=== PATIENT | female | born 1950 | race Caucasian/White ===

== ENCOUNTER → 2023-10-09 09:13 | Outpatient (REF) | payer OTHER, SELFPAY | LOC: DHCBS HW 09:13 | PROVIDERS: ATTENDING PHYSICIAN Internal Medicine Cardiovascular Disease; FAMILY PHYSICIAN Physician Assistant Medical | DX: R06.09 Other forms of dyspnea (principal); R94.31 Abnormal electrocardiogram [ECG] [EKG] | CPT/HCPCS: 93306 ==

== ENCOUNTER → 2023-10-12 06:57 | Outpatient (REF) | payer OTHER, SELFPAY | LOC: DHCBC/DCA 06:57 | PROVIDERS: ATTENDING PHYSICIAN Internal Medicine Cardiovascular Disease; FAMILY PHYSICIAN Physician Assistant Medical | DX: R06.09 Other forms of dyspnea (principal); R94.31 Abnormal electrocardiogram [ECG] [EKG] | CPT/HCPCS: 78452; 93017; A9500; J2785 ==

== ENCOUNTER 2023-11-09 06:25 | Inpatient (IN) | payer OTHER, SELFPAY ==
--- NOTE | 2023-10-16 09:35 | CM ---
Addendum entered by Angela Hopper 11/01/23 10:19:
Spoke again with patient. She has a rolling walker.
Original Note:
Patient is scheduled for an elective L TKR on 11/09/23. Spoke with patient prior to surgery via telephone. Patient had R TKR at in 2020. Reintroduced role of Orthopedic Navigator. Patient reports that she lives alone in a multi story home. There
is a powder room on the medical charge entry specialist. She currently functions independently. She has two raised toilet seats, cane and possibly a rolling walker.
Discussed orthopedic program and post surgical plans. Reviewed anticipated length of stay and that goal is for her to return home at discharge. Also reviewed outpatient PT. Patient is in agreement with tentative plan and will go directly to
outpatient PT at [facility]. Her friend will be staying with her for a week.
Patient will complete online education.
Plan: Orthopedic Navigator will remain available to assist with the care of patient and will reassess discharge needs after surgery.
[2023-10-20 12:38] VITALS: BMI 31.8
[2023-10-20 14:01] LABS: Hematocrit 36.6 % (37.0-47.0); Hemoglobin 12.5 g/dL (12.0-16.0); Mean Corp Hgb Conc. 34.2 g/dL (33.0-37.0); Mean Corpuscular Hgb 31.6 pg (27.0-31.0); Mean Corpuscular Volume 92.7 fL (81.0-99.0); Mean Platelet Volume 10.2 fL (7.4-10.4); Platelet Count 309 10^3/uL (130-400); Red Blood Cell Count 3.95 10^6/uL (4.20-5.40); Red Cell Dist. Width 12.5 % (11.5-14.5); White Blood Cell Count 8.2 10^3/uL (4.8-10.8)
[2023-10-20 14:24] LABS: ALT (SGPT) 24 U/L (0-35); AST (SGOT) 32 U/L (14-36); Albumin 4.6 g/dl (3.5-5.0); Alkaline Phosphatase 109 U/L (38-126); Blood Urea Nitrogen 16 mg/dl (7-17); Calcium 9.5 mg/dl (8.4-10.2); Carbon Dioxide 24 mmol/L (22-30); Chloride 105 mmol/L (98-107); Estimated Creatinine Clearance 55 ml/min; Glucose 87 mg/dl (70-99); Potassium 4.4 mmol/L (3.5-5.1); Sodium 136 mmol/L (135-145); Total Bilirubin 0.4 mg/dl (0.2-1.3); Total Protein 7.3 g/dl (6.3-8.2); eGFR > 60.00
[2023-10-20 14:44] VITALS: BMI 31.8
[2023-10-21 09:39] LABS: Glycohemoglobin (HgbA1c) 5.7 % (4.0-5.6)
[2023-11-09] VITALS (16 sets, daily range): BP systolic 100–156; BP diastolic 53–95; PULSE 91; O2SAT 97; BMI 31.8
[2023-11-09] MEDS: NORMOSOL-R 1000 IV ×2 (09:11→12:42)
[2023-11-09] MEDS: MOBIC 15 MG PO (09:11)
[2023-11-09] MEDS: TYLENOL 650 MG PO ×4 (09:11→19:27)
[2023-11-09] MEDS: TYLENOL PO (12:49)
[2023-11-09] MEDS: ROXICODONE 5 MG PO ×2 (12:52→15:59)
--- NOTE | 2023-11-09 14:22 | PTCARENOTE ---
Pt arrived to [facility] from PACU s/o L TKR. Pt NV intact, L knee aquacel C/D/I, IVF infusing. Pt states no pain at this time. Oriented to call palencia and room, bed locked and in lowest position, call palencia within reach.
--- NOTE | 2023-11-09 14:36 | W.PN.UPDATE ---
Update Note
Progress Note Update
Patient seen and examined. VSS. Pulm: nonlabored. CV: regular. Ext: LLE dressing CDI. NVI distally. Able to fully extend. Calf soft. Postop xray as expected. ASA for DVT prophylaxis. OOB today and plan for discharge home tomorrow.
[2023-11-09] MEDS: NEURONTIN PO (14:54)
[2023-11-09] MEDS: PROZAC 20 MG PO (15:52)
[2023-11-09] MEDS: NEURONTIN 300 MG PO ×2 (15:52→21:22)
[2023-11-09] MEDS: THIAMINE INJECTION 200 MG IV (15:52)
[2023-11-09] MEDS: SYNTHROID 112 MCG PO (15:52)
[2023-11-09] MEDS: ASPIRIN 325 MG PO (17:05)
[2023-11-09] MEDS: ANCEF 5 IV (17:05)
[2023-11-09] MEDS: BACTROBAN 2% OINTMENT 1 APPLIC NASAL (19:25)
[2023-11-09] MEDS: COLACE 100 MG PO (19:26)
[2023-11-09] MEDS: SERAX 10 MG PO (19:27)
[2023-11-09] MEDS: SENOKOT 17.1999999999999993 MG PO (19:27)
[2023-11-09] MEDS: DECADRON 4 MG PO (19:27)
[2023-11-09] MEDS: ULTRAM 50 MG PO (19:28)
[2023-11-09] MEDS: TORADOL 15 MG IV (19:28)
[2023-11-09] MEDS: LIPITOR 20 MG PO (21:22)
[2023-11-10] MEDS: TYLENOL PO ×2 (00:21→04:44)
[2023-11-10] MEDS: ANCEF 5 IV (02:15)
[2023-11-10 03:45] VITALS: BP 114/57
--- NOTE | 2023-11-10 07:18 | W.PN.ORTHO ---
Today's Communication / Plan
-
Discharge today
Assessment
.
Distal Motor Intact: Yes
Dressing:
Clean, dry and intact.
Assessment:
Plan for discharge home today after PT. Patient working on arranging public transportation for outpatient PT. Case management to discuss possible home PT for 2-3 weeks prior to outpatient PT
Plan
.
Surgery / Date: 11/09/23 L TKR [facility]
DVT Prophylaxis: Aspirin
Activity:
Out of bed.
PT/OT
Discharge Plan: Home w/ VN
Discharge Information:
Plan for discharge home today with home PT and VN
Subjective
.
.:
Patient resting comfortably. Doing well. Was up walking yesterday. Pain controlled.
Vital Signs and Labs
.
Vital Signs and Labs:
Lab Results
10/20/23 12:16
10/20/23 12:16
Temp Pulse Resp BP Pulse Ox
97.6 F 77 16 114/57 97
11/10/23 03:45 11/10/23 03:45 11/10/23 03:45 11/10/23 03:45 11/10/23 03:45
Non-invasive Hgb result: 10.9
Physical Exam
-
Pulm: nonlabored
CV: reg
LLE: dressing CDI. NVI distally. Able to fully extnd and flex to 80 degrees
[2023-11-10 07:28] LABS: Hepatitis C Antibody Negative (Negative)
[2023-11-10 07:38] VITALS: BP 113/56
[2023-11-10] MEDS: BACTROBAN 2% OINTMENT 1 APPLIC NASAL (08:00)
--- NOTE | 2023-11-10 08:40 | CM ---
Addendum entered by JAVIER Gallagher 11/10/23 10:44:
COnfirmation from [facility] accepting case for Rn and PT.
Original Note:
Reviewed chart and held rounds with PT, OT and nursing. Patient admitted as planned for elective L TKR. Met with patient at bedside. Confirmed information previously obtained for assessment. Also discussed discharge plans. The plan is for patient to
return home at discharge. Per patient she spoke to Dr. Rockwell today and he suggested she have home care as she has been unable to secure rides for her outpatient PT. Referral sent in allscripts requesting start of care (tentatively 11/10), services
to be ordered (PT, SN) and frequency/duration of services. Options list provided and PAC data reviewed. Patient selects [facility].
Patient has a 2 rolling walkers, 2 Raised toilet seats and a cane at home.
Provided patient with handicapped placard application.
VN referral was completed and sent to [facility] through [employer] with request for start of care on 11/10. Awaiting confirmation received of their ability to accept case. hospital unit clerk to fax discharge instructions to [facility] when complete.
Patient will use [facility] pharmacy for discharge prescriptions.
[2023-11-10] MEDS: THIAMINE INJECTION 200 MG IV (09:03)
[2023-11-10] MEDS: TORADOL 15 MG IV (09:03)
[2023-11-10] MEDS: SYNTHROID 112 MCG PO (09:04)
[2023-11-10] MEDS: TYLENOL 650 MG PO ×2 (09:04→12:36)
[2023-11-10] MEDS: ASPIRIN 325 MG PO (09:04)
[2023-11-10] MEDS: DECADRON 4 MG PO (09:04)
[2023-11-10] MEDS: PROZAC 20 MG PO (09:04)
[2023-11-10] MEDS: NEURONTIN 300 MG PO (09:05)
[2023-11-10] MEDS: SENOKOT 17.1999999999999993 MG PO (09:05)
[2023-11-10] MEDS: COLACE 100 MG PO (09:06)
[2023-11-10] MEDS: ULTRAM 50 MG PO (09:06)
[2023-11-10] MEDS: MOBIC 15 MG PO (09:06)
[2023-11-10] MEDS: SERAX 10 MG PO (09:06)
[2023-11-10 09:59] VITALS: BP 120/51; PULSE 72; O2SAT 99
--- NOTE | 2023-11-10 10:16 | W.PN.ORTHO ---
Today's Communication / Plan
-
d/c
Assessment
.
Distal Motor Intact: Yes
Dressing:
Clean, dry and intact.
Assessment:
Daily ETOH-no sx w/drawl on current regimen
Plan
.
Surgery / Date: 11/09/23 L TKR [facility]
DVT Prophylaxis: Aspirin
Activity:
Out of bed.
PT/OT
Discharge Plan: Home w/ VN
Subjective
.
.:
Patient resting comfortably.
Vital Signs and Labs
.
Vital Signs and Labs:
Lab Results
10/20/23 12:16
10/20/23 12:16
Temp Pulse Resp BP Pulse Ox
97.8 F 64 17 113/56 98
11/10/23 07:38 11/10/23 07:38 11/10/23 07:38 11/10/23 09:07 11/10/23 07:38
Non-invasive Hgb result: 10.9
Physical Exam
-
HEENT: No pallor, cyanosis, or jaundice. Throat clear.
NECK: Supple. No JVD.
RESPIRATORY: Lungs clear to auscultation.
CVS: S1, S2 normal. RRR.� No murmur, rub or gallop.
ABDOMEN: Soft, non-tender. No distension. BS+/normal.
EXTREMITIES: strength equal, no calf pain with palpation
FOOD AND NUTRITION SERVICES SUPERVISOR: AOx3. No focal deficits. automotive quality manager grossly intact
--- NOTE | 2023-11-10 10:23 | W.DS.TRANS ---
DC Summary - Mobile Architect
-
Discharge Instructions:
Sleep Apnea Risk Low
Discharge Diagnosis/Procedures 11/09/23 L TKR [facility]
Diet As tolerated
Activity With Walker
Driving Restrictions No driving
Bathing Restrictions OK to Shower
Other Services PT,VN
Instructions:
Stand-Alone Forms:
Changes to Home Medications: Yes
Discharge Medications:
DC Medications w/original date entered in [employer]
simvastatin 40 mg tablet 40 mg PO DAILY High cholesterol 03/08/16
levothyroxine 112 mcg tablet 112 mcg PO DAILY Thyroid 12/28/20
B6 1.7 mg-folic 400 mcg-B12 2.4 [id number] oral capsule (Neuriva Plus Brain Performance) 1 cap PO DAILY Supplement 10/17/23
Nutrafol 4 tab PO DAILY Supplement 10/17/23
Serovital 2 cap PO DAILY Supplement 10/17/23
Serovital 4 cap PO QPM Supplement 10/17/23
amlodipine 2.5 mg tablet 2.5 mg PO DAILY Blood Pressure 10/17/23
calcium 500 mg tablet 500 mg PO DAILY Supplement 10/17/23
cholecalciferol (vitamin D3) 25 mcg (1,000 unit) tablet (Vitamin D3) 25 mcg PO DAILY Supplement 10/17/23
fluoxetine 20 mg tablet 20 mg PO DAILY Depression 10/17/23
fluticasone propionate 50 mcg/actuation nasal spray,suspension (Flonase Allergy Relief) 1 spray intranasal BID PRN ALLERGIES/CONGESTION 10/17/23
multivitamin 1 tab PO DAILY Supplement 10/17/23
red yeast rice 600 mg capsule 1,200 mg PO DAILY Supplement 10/17/23
mupirocin 2 % topical ointment 1 applic topical BID infection prevention #1 tube 10/20/23
acetaminophen 500 mg tablet 1,000 mg (2 x 500 mg) PO BID #0 tabs 11/10/23
aspirin 325 mg tablet 325 mg PO DAILY blood clot prevention #1 tab 11/10/23
dexamethasone 4 mg tablet 4 mg PO BID inflammation #6 tabs 11/10/23
diazepam 2 mg tablet (Valium) 2 mg PO HS muscle pain/sleep #5 tabs 11/10/23
docusate sodium 100 mg capsule (Colace) 100 mg PO BID stool softner #1 cap 11/10/23
famotidine 20 mg tablet 20 mg PO HS GI prophylaxis #30 tabs 11/10/23
gabapentin 300 mg capsule 300 mg PO TID sleep/pain #15 caps 11/10/23
magnesium hydroxide 400 mg/5 mL oral suspension (Milk of Magnesia) 30 ml PO HS PRN Constipation #1 mL 11/10/23
meloxicam 15 mg tablet 15 mg PO DAILY anti-inflammatory #14 tabs 11/10/23
oxycodone 5 mg tablet 5 mg PO Q6H PRN 1 tab moderate pain, 2 tabs severe pain #30 tabs 11/10/23
sennosides 8.6 mg tablet (Senokot) 17.2 mg (2 x 8.6 mg) PO BID laxative #2 tabs 11/10/23
Home Medication Changes
dexamethasone 4 mg tablet 4 mg PO BID inflammation #6 tabs 11/10/23
diazepam 2 mg tablet (Valium) 2 mg PO HS muscle pain/sleep #5 tabs 11/10/23
famotidine 20 mg tablet 20 mg PO HS GI prophylaxis #30 tabs 11/10/23
gabapentin 300 mg capsule 300 mg PO TID sleep/pain #15 caps 11/10/23
meloxicam 15 mg tablet 15 mg PO DAILY anti-inflammatory #14 tabs 11/10/23
oxycodone 5 mg tablet 5 mg PO Q6H PRN 1 tab moderate pain, 2 tabs severe pain #30 tabs 11/10/23
Pending Results: No
[2023-11-10 11:43] VITALS: BP 119/51
[2023-11-10] MEDS: ROXICODONE 5 MG PO (12:39)
== END 2023-11-10 13:08 | disposition home health service (06) | DRG 470 ==
LOC: 2 SOUTH 06:25
PROVIDERS: ADMITTING PHYSICIAN Orthopaedic Surgery; FAMILY PHYSICIAN Physician Assistant Medical
PROC: 0SRD0J9 Replacement of Left Knee Joint with Synthetic Substitute, Cemented, Open Approach (ICD-10-PCS; 2023-11-09)
DX: M17.12 Unilateral primary osteoarthritis, left knee (principal); E66.9 Obesity, unspecified; M85.80 Other specified disorders of bone density and structure, unspecified site; E03.9 Hypothyroidism, unspecified; E78.5 Hyperlipidemia, unspecified; F32.A Depression, unspecified; F41.9 Anxiety disorder, unspecified; M51.34 Other intervertebral disc degeneration, thoracic region; M48.04 Spinal stenosis, thoracic region; I10 Essential (primary) hypertension; F10.90 Alcohol use, unspecified, uncomplicated; Z96.651 Presence of right artificial knee joint; Z68.31 Body mass index [BMI] 31.0-31.9, adult; Z87.891 Personal history of nicotine dependence; Z79.82 Long term (current) use of aspirin; Z79.890 Hormone replacement therapy; Z79.1 Long term (current) use of non-steroidal anti-inflammatories (NSAID); Z88.0 Allergy status to penicillin
CPT/HCPCS: 36415; 73560; 80053; 83036; 85027; 86803; 87070; 97110; 97116; 97162; 97166; 97535; C1713; C1776

== ENCOUNTER → 2024-04-29 06:26 | Day surgery (SDC) | payer OTHER, SELFPAY | LOC: GI 06:26 | PROVIDERS: ATTENDING PHYSICIAN Internal Medicine Gastroenterology | DX: K44.9 Diaphragmatic hernia without obstruction or gangrene (principal); K31.7 Polyp of stomach and duodenum; R12 Heartburn | CPT/HCPCS: 43239; 88305; 88342 ==

== ENCOUNTER → 2024-06-10 07:43 | Outpatient (REF) | payer OTHER, SELFPAY | LOC: HWWDC 07:43 | PROVIDERS: ATTENDING PHYSICIAN Obstetrics & Gynecology; FAMILY PHYSICIAN Physician Assistant Medical | DX: Z12.31 Encounter for screening mammogram for malignant neoplasm of breast (principal); M85.80 Other specified disorders of bone density and structure, unspecified site | CPT/HCPCS: 77063; 77067; 77080 ==

== ENCOUNTER → 2025-03-31 10:29 | Outpatient (REF) | payer OTHER, SELFPAY | LOC: HWRAD 10:29 | PROVIDERS: ATTENDING PHYSICIAN Physician Assistant Medical | DX: M25.552 Pain in left hip (principal) | CPT/HCPCS: 73502 ==

== ENCOUNTER → 2025-05-21 06:51 | Outpatient (REF) | payer OTHER, SELFPAY | LOC: MRI 3T 06:51 | PROVIDERS: ATTENDING PHYSICIAN Orthopaedic Surgery; FAMILY PHYSICIAN Physician Assistant Medical | DX: M54.16 Radiculopathy, lumbar region (principal) | CPT/HCPCS: 72148 ==

== ENCOUNTER → 2025-06-27 13:18 | Outpatient (REF) | payer OTHER, SELFPAY | LOC: HWWDC 13:18 | PROVIDERS: ATTENDING PHYSICIAN Obstetrics & Gynecology; FAMILY PHYSICIAN Physician Assistant Medical | DX: Z12.31 Encounter for screening mammogram for malignant neoplasm of breast (principal) | CPT/HCPCS: 77063; 77067 ==